=== PATIENT | male | born 1960 | race Caucasian/White ===

== ENCOUNTER 2024-07-11 18:08 | Inpatient (IN) | payer MEDICAID ==
[~2024-07-11] VITALS: Ht 167.6 cm; Wt 85.7 kg
[~2024-07-11 18:08] MED LIST: FURO40TA5 MT
[2024-07-11] MEDS: PREDNISONE 20MG TABLET PO STA (18:50)
[2024-07-11] MEDS: ALBUTEROL (0.083%) 2.5MG/3ML NEB HHN STA (19:11)
[2024-07-11] MEDS: IPRATROPIUM BROMIDE (0.02%) 0.5MG/2.5ML NEB HHN STA (19:11)
[2024-07-11 19:14] VITALS: PULSE 85; RESP 20; O2SAT 93
[2024-07-11 19:39] LABS: HEMATOCRIT. 40.8 % (42.0-52.0); HEMOGLOBIN. 13.8 g/dL (14.0-18.0); LYMPHOCYTES % 18.2 % (20.0-50.0); MEAN CORPUSCULAR HEMOGLOBIN 33.3 pg (28.0-32.0); MEAN CORPUSCULAR VOLUME 98.2 fL (80.0-94.0); MEAN PLATELET VOLUME 8.7 fl (7.4-10.4); MONOCYTES % 16.4 % (2.0-8.0); NEUTROPHILS % 65.4 % (40.0-76.0); PLATELET 224 x1000/uL (130-400); RED BLOOD CELL COUNT 4.15 mill/uL (4.7-6.1); RED CELL DISTRIBUTION WIDTH 13.7 % (11.6-14.6); WHITE BLOOD COUNT 6.1 x1000/uL (4.5-11.0)
[2024-07-11 19:42] LABS: DIFFERENTIAL COMMENT 1
[2024-07-11 19:44] LABS: CHLORIDE 112 mEq/L (98-107); SODIUM 145 mEq/L (136-145)
[2024-07-11 19:45] LABS: CALCIUM 8.9 mg/dL (8.7-10.4); CARBON DIOXIDE 29 mEq/L (21-32)
[2024-07-11 19:50] LABS: CREATININE 1.3 mg/dL (0.6-1.3); GLUCOSE 90 mg/dL (70-105); UREA NITROGEN BLOOD 22 mg/dL (9-23)
[2024-07-11] MEDS: CLOPIDOGREL 75MG TABLET PO ONE (20:36)
[2024-07-11] MEDS: ASPIRIN 325MG EC TABLET PO ONE (20:36)
[2024-07-11 20:39] LABS: TROPONIN I HIGH SENSITIVITY 144 ng/L (3.0-53)
[2024-07-12 04:00] VITALS: BP 98/66; PULSE 78; RESP 18; TEMP 36.61404; O2SAT 99
[2024-07-12 08:00] VITALS: BP 111/72; PULSE 79; RESP 18; TEMP 36.6696; O2SAT 98
[2024-07-12 08:06] VITALS: BP 109/62; PULSE 82; RESP 15; TEMP 36.418
[2024-07-12] MEDS: METOPROLOL SUCCINATE 50MG ER TABLET PO SCH (09:03)
[2024-07-12] MEDS: ASPIRIN 81MG TABLET PO SCH (09:03)
[2024-07-12] MEDS ORDERED: CLONIDINE 0.1MG TABLET PO PRN (10:15)
[2024-07-12] MEDS ORDERED: DOCUSATE SODIUM 100MG CAPSULE PO PRN (10:15)
[2024-07-12] MEDS ORDERED: ACETAMINOPHEN 325MG TABLET PO PRN (10:15)
[2024-07-12] MEDS ORDERED: ONDANSETRON HCL 4MG/2ML INJ IV PRN (10:15)
[2024-07-12] MEDS: FUROSEMIDE 40MG/4ML VIAL IVP SCH (11:36)
[2024-07-12] MEDS: PANTOPRAZOLE SODIUM 40 MG/VIAL IV SCH (11:36)
[2024-07-12] MEDS: ENOXAPARIN 40MG/0.4ML SYR SUBCUT SCH (11:37)
[2024-07-12 12:00] VITALS: BP 115/68; PULSE 81; RESP 20; TEMP 36.3918; O2SAT 99
[2024-07-12] MEDS: NITROGLYCERIN OINT 1GM/INCH UDPKT TD SCH (14:00)
[2024-07-12 16:00] VITALS: BP 108/70; PULSE 75; RESP 18; TEMP 36.55848; O2SAT 98
[2024-07-12 20:00] VITALS: BP_SYST 102; BP_SYST 105; BP_DIAS 61; PULSE 76; RESP 15; RESP 18; TEMP 36.33624; TEMP 36.3918; O2SAT 97; O2SAT 98
[2024-07-13] VITALS (7 sets, daily range): BP systolic 100–109; BP diastolic 53–67; PULSE 59–75; RESP 16–20; TEMP 36.22512–36.55848; O2SAT 95–98
[2024-07-13] MEDS: IPRATROPIUM/ALBUTEROL 0.5-3(2.5)MG/3ML NEB HHN PRN (08:00)
[2024-07-13] MEDS: FUROSEMIDE 40MG TABLET PO SCH (09:00)
[2024-07-13 13:21] LABS: BASOPHILS % 0.1 % (0.0-2.0); EOSINOPHILS % 0.5 % (0.0-5.0); HEMATOCRIT. 42.2 % (42.0-52.0); HEMOGLOBIN. 14.5 g/dL (14.0-18.0); LYMPHOCYTES % 15.9 % (20.0-50.0); MEAN CORPUSCULAR HEMOGLOBIN 33.6 pg (28.0-32.0); MEAN CORPUSCULAR HGB CONC 34.3 g/dL (31.0-37.0); MEAN CORPUSCULAR VOLUME 97.9 fL (80.0-94.0); MEAN PLATELET VOLUME 9.2 fl (7.4-10.4); MONOCYTES % 7.3 % (2.0-8.0); NEUTROPHILS % 76.2 % (40.0-76.0); PLATELET 239 x1000/uL (130-400); RED BLOOD CELL COUNT 4.31 mill/uL (4.7-6.1); RED CELL DISTRIBUTION WIDTH 13.7 % (11.6-14.6); WHITE BLOOD COUNT 7.7 x1000/uL (4.5-11.0)
[2024-07-13 13:23] LABS: CHLORIDE 100 mEq/L (98-107); POTASSIUM 4.3 mEq/L (3.5-5.1); SODIUM 138 mEq/L (136-145)
[2024-07-13 13:24] LABS: CALCIUM 9.7 mg/dL (8.7-10.4); CARBON DIOXIDE 32 mEq/L (21-32)
[2024-07-13 13:27] LABS: CREATINE KINASE MB FRACTION 4.9 ng/mL (0.5-3.6)
[2024-07-13 13:29] LABS: CREATININE 1.2 mg/dL (0.6-1.3); GLUCOSE 91 mg/dL (70-105)
[2024-07-13 13:30] LABS: D-DIMER < 0.19 mg/L FEU (<0.50); INR 0.9; LDL CHOLESTEROL 66 mg/dL (5-100); PROTHROMBIN TIME 10.3 sec (9.6-11.0); TRIGLYCERIDE 204 mg/dL (0-150); UREA NITROGEN BLOOD 21 mg/dL (9-23)
[2024-07-13 13:31] LABS: ALANINE AMINOTRANSFERASE 22 IU/L (10-49); ALBUMIN 4.3 g/dL (3.2-4.8); ASPARTATE AMINOTRANSFERASE 12 IU/L (<34); BILIRUBIN DIRECT 0.2 mg/dL (<=3.0); CHOLESTEROL 157 mg/dL (<200); CREATINE KINASE 48 IU/L (46-171); HDL CHOLESTEROL 67 mg/dL (>55); T4 FREE 1.07 ng/dL (0.89-1.76); TROPONIN I HIGH SENSITIVITY 96 ng/L (3.0-53)
[2024-07-13 13:32] LABS: BILIRUBIN TOTAL 0.9 mg/dL (0.1-1.0); PHOSPHORUS 4.3 mg/dL (2.5-4.9); PROTEIN TOTAL 6.7 g/dL (6.0-8.3)
[2024-07-13] MEDS: PANTOPRAZOLE 40MG DR TABLET PO SCH (20:27)
[2024-07-13 21:20] LABS: CLARITY URINE CLEAR (CLEAR); COLOR URINE YELLOW (YELLOW); GLUCOSE URINE 3+ (NEGATIVE); KETONES URINE NEGATIVE (NEGATIVE); LEUKOCYTE ESTERASE URINE NEGATIVE (NEGATIVE); NITRITE URINE NEGATIVE (NEGATIVE); OCCULT BLOOD URINE NEGATIVE (NEGATIVE); PROTEIN URINE NEGATIVE (NEGATIVE); SPECIFIC GRAVITY URINE 1.023 (1.005-1.030); UROBILINOGEN URINE 0.2 E.U./dL (0.2-1.0)
[2024-07-13 21:31] LABS: *AMPHETAMINES SCREEN URINE PRESUMPTIVE POSITIVE (NEGATIVE); *BARBITURATES SCREEN URINE NEGATIVE (NEGATIVE); *BENZODIAZEPINES SCREEN URINE NEGATIVE (NEGATIVE); *COCAINE SCREEN URINE NEGATIVE (NEGATIVE)
[2024-07-13 21:32] LABS: CANNABINOID URINE SCREEN PRESUMPTIVE POSITIVE (NEGATIVE); ECSTASY MDMA SCREEN URINE NEGATIVE (NEGATIVE); METHADONE URINE SCREEN NEGATIVE (NEGATIVE); OPIATES URINE SCREEN NEGATIVE (NEGATIVE); PHENCYCLIDINE URINE SCREEN NEGATIVE (NEGATIVE)
[2024-07-13 22:15] LABS: BACTERIA URINE TRACE; SQUAMOUS EPITHELIAL CELL URINE FEW /lpf (RARE/1+)
[2024-07-13 22:16] LABS: RBC URINE NONE SEEN /hpf (0-2); WBC URINE 0-2 /hpf (0-2)
[2024-07-14] VITALS (7 sets, daily range): BP systolic 100–116; BP diastolic 53–74; PULSE 61–88; RESP 18–20; TEMP 36.114–36.78072; O2SAT 95–99
[2024-07-14] MEDS: ACETAMINOPHEN 325MG TABLET PO PRN (01:22)
[2024-07-14] MEDS: LEVOTHYROXINE SODIUM 50MCG TABLET PO SCH (13:21)
[2024-07-14] MEDS ORDERED: SPIR25TA6 MT (17:00)
[2024-07-14] MEDS ORDERED: CARV3.1242 MT (17:00)
[2024-07-14] MEDS ORDERED: LEVO50TA8 PO (17:00)
[2024-07-14] MEDS ORDERED: LOSA25TA26 MT (17:00)
[2024-07-14] MEDS ORDERED: FURO40TA5 MT (17:01)
[2024-07-14] MEDS: TRAZODONE HCL 50MG TABLET PO SCH (20:16)
[2024-07-14] MEDS: ATORVASTATIN CALCIUM 40MG TABLET PO SCH (20:17)
[2024-07-15] VITALS: BP 100/69; PULSE 74; RESP 20; TEMP 36.114; O2SAT 97
[2024-07-15 04:00] VITALS: BP 117/78; PULSE 69; RESP 20; TEMP 36.78072; O2SAT 99
[2024-07-15 08:00] VITALS: BP 115/73; PULSE 72; RESP 18; TEMP 36.44736; O2SAT 95
[2024-07-15 12:00] VITALS: BP 119/79; PULSE 66; RESP 20; TEMP 36.55848; O2SAT 95
[2024-07-15 12:50] VITALS: BP 113/71; PULSE 70; TEMP 97.8; O2SAT 95
== END 2024-07-15 13:33 | disposition home or self-care (01) | DRG 812 ==
LOC: ER 18:08 → 8WST 20:30 → EDBEDREQTM 20:39 → EDBEDREQ 20:39
PROVIDERS: ADMIT Internal Medicine; ATTEND Internal Medicine
DX: T43.621A Poisoning by amphetamines, accidental (unintentional), initial encounter (principal); J96.00 Acute respiratory failure, unspecified whether with hypoxia or hypercapnia; I50.23 Acute on chronic systolic (congestive) heart failure; I42.0 Dilated cardiomyopathy; R07.89 Other chest pain; E11.9 Type 2 diabetes mellitus without complications; E78.00 Pure hypercholesterolemia, unspecified; Z59.00 Homelessness unspecified; I25.10 Atherosclerotic heart disease of native coronary artery without angina pectoris; F15.90 Other stimulant use, unspecified, uncomplicated; F17.210 Nicotine dependence, cigarettes, uncomplicated; Z91.148 Patient's other noncompliance with medication regimen for other reason; Z71.51 Drug abuse counseling and surveillance of drug abuser; Y92.89 Other specified places as the place of occurrence of the external cause
CPT/HCPCS: 36415; 71045; 80048; 80061; 80076; 80305; 81003; 82550; 82553; 83036; 83735; 83880; 84100; 84439; 84443; 84480; 84484; 85025; 85379; 93005; 93306; 94640; 99291; J1650; J1940; J2470; J7512

== ENCOUNTER 2024-09-03 02:56 | Inpatient (IN) | payer MEDICAID, OTHER ==
[~2024-09-03] VITALS: Ht 172.7 cm; Wt 84.8 kg
[~2024-09-03 02:56] MED LIST changes: +CARV3.1242 MT; +LEVO50TA8 PO; +LOSA25TA26 MT; +SPIR25TA6 MT
[2024-09-03] MEDS ORDERED: IPRATROPIUM BROMIDE (0.02%) 0.5MG/2.5ML NEB HHN STA (03:27)
[2024-09-03] MEDS ORDERED: ALBUTEROL (0.083%) 2.5MG/3ML NEB HHN STA (03:27)
[2024-09-03 04:09] LABS: BASOPHILS % 0.5 % (0.0-2.0); EOSINOPHILS % 0.1 % (0.0-5.0); HEMATOCRIT. 44.9 % (42.0-52.0); LYMPHOCYTES % 7.5 % (20.0-50.0); MEAN CORPUSCULAR HEMOGLOBIN 32.9 pg (28.0-32.0); MEAN CORPUSCULAR HGB CONC 33.4 g/dL (31.0-37.0); MEAN CORPUSCULAR VOLUME 98.5 fL (80.0-94.0); MEAN PLATELET VOLUME 9.6 fl (7.4-10.4); MONOCYTES % 8.7 % (2.0-8.0); NEUTROPHILS % 83.2 % (40.0-76.0); PLATELET 227 x1000/uL (130-400); RED BLOOD CELL COUNT 4.56 mill/uL (4.7-6.1); RED CELL DISTRIBUTION WIDTH 14.3 % (11.6-14.6)
[2024-09-03] MEDS ORDERED: ALBUTEROL (0.083%) 2.5MG/3ML NEB HHN NR (04:30)
[2024-09-03] MEDS: METHYLPREDNISOLONE SOD SUCC 125MG/2ML (ACT-O-VIAL) IV NR (04:30)
[2024-09-03] MEDS ORDERED: IPRATROPIUM BROMIDE (0.02%) 0.5MG/2.5ML NEB HHN NR (04:30)
[2024-09-03 04:46] LABS: CHLORIDE 105 mEq/L (98-107); POTASSIUM 4.9 mEq/L (3.5-5.1); SODIUM 140 mEq/L (136-145)
[2024-09-03 04:47] LABS: CALCIUM 8.8 mg/dL (8.7-10.4); CARBON DIOXIDE 24 mEq/L (21-32)
[2024-09-03 04:52] LABS: CREATININE 1.2 mg/dL (0.6-1.3); GLUCOSE 117 mg/dL (70-105); UREA NITROGEN BLOOD 17 mg/dL (9-23)
[2024-09-03 04:56] LABS: TROPONIN I HIGH SENSITIVITY 85 ng/L (3.0-53)
[2024-09-03] MEDS: MAGNESIUM 2 G PREMIX 50 ML IV ONE (05:30)
[2024-09-03] MEDS: METHYLPREDNISOLONE SOD SUCC 125MG/2ML (ACT-O-VIAL) IV STA (05:30)
[2024-09-03] MEDS ORDERED: NITROGLYCERIN 0.4MG TABLET SL SL PRN (06:15)
[2024-09-03] MEDS ORDERED: DOCUSATE SODIUM 100MG CAPSULE PO PRN (06:15)
[2024-09-03] MEDS ORDERED: IPRATROPIUM/ALBUTEROL 0.5-3(2.5)MG/3ML NEB NEB PRN (06:15)
[2024-09-03] MEDS ORDERED: ONDANSETRON HCL 4MG/2ML INJ IV PRN (06:15)
[2024-09-03] MEDS ORDERED: MAGNESIUM/ALUMINUM HYDROXIDE/SIMETHICONE 30ML UDC PO PRN (06:15)
[2024-09-03] MEDS ORDERED: ACETAMINOPHEN 325MG TABLET PO PRN (06:15)
[2024-09-03] MEDS ORDERED: KETOROLAC 15MG/ML VIAL IV PRN (06:15)
[2024-09-03] MEDS ORDERED: CLONIDINE 0.1MG TABLET PO PRN (06:15)
[2024-09-03 06:41] LABS: BG BASE EXCESS 1.3 mmol/L (-2.0-3.0); BG CARBOXYHEMOGLOBIN 0.7 % (0.5-1.5); BG DEOXYHEMOGLOBIN 4.1 % (0.0-5.0); BG HCO3 ACT 25.5 mmol/L (21.0-28.0); BG METHEMOGLOBIN 0.1 % (0.5-1.5); BG OXYGEN SATURATION 95.9 % (94.0-98.0); BG OXYHEMOGLOBIN 95.1 % (94.0-98.0); BG PH 7.433 (7.350-7.450); BG PO2 80.6 mmHg (83.0-108.0); BG SAMPLE SITE RIGHT RADIAL; BG TOTAL HEMOGLOBIN 14.3 g/dL (13.5-17.5); BG VENT MODE ROOM AIR
[2024-09-03 06:51] LABS: TROPONIN I HIGH SENSITIVITY 88 ng/L (3.0-53)
[2024-09-03] MEDS ORDERED: AZITHROMYCIN 500 MG in DEXT 5% WATER 250 ML IV SCH (08:00)
[2024-09-03] MEDS: FAMOTIDINE 20MG TABLET PO SCH (08:20)
[2024-09-03] MEDS: ACETAMINOPHEN 325MG TABLET PO PRN (08:20)
[2024-09-03] MEDS: ASPIRIN 325MG EC TABLET PO SCH (08:31)
[2024-09-03 08:33] LABS: IRON 36 ug/dL (65-175)
[2024-09-03 08:34] LABS: LDL CHOLESTEROL 64 mg/dL (5-100); TRIGLYCERIDE 102 mg/dL (0-150)
[2024-09-03 08:36] LABS: CHOLESTEROL 141 mg/dL (<200); HDL CHOLESTEROL 56 mg/dL (>55); TOTAL IRON BINDING CAPACITY 316 ug/dl (250-425)
[2024-09-03 08:37] LABS: T4 FREE 0.99 ng/dL (0.89-1.76); VITAMIN B12 SERUM 329 pg/mL (211-911)
[2024-09-03 08:38] LABS: FOLIC ACID (FOLATE) SERUM 13.62 ng/mL (>5.38); THYROID STIMULATING HORMONE 18.12 uIU/mL (0.55-4.78)
[2024-09-03 08:59] LABS: ETHANOL BLOOD < 10 mg/dL (<10)
[2024-09-03 10:00] VITALS: BP 107/64; PULSE 87; RESP 18; TEMP 36.0844; TEMP 36.78072; O2SAT 96
[2024-09-03] MEDS: ENOXAPARIN 40MG/0.4ML SYR SUBCUT SCH (10:57)
[2024-09-03] MEDS: GUAIFENESIN 600MG ER TABLET PO SCH (10:58)
[2024-09-03 12:00] VITALS: BP 116/65; PULSE 91; RESP 18; TEMP 36.61404; O2SAT 96
[2024-09-03] MEDS: METHYLPREDNISOLONE SOD SUCC 125MG/2ML (ACT-O-VIAL) IV SCH (14:59)
[2024-09-03 15:33] VITALS: PULSE 80; RESP 20
[2024-09-03] MEDS: IPRATROPIUM/ALBUTEROL 0.5-3(2.5)MG/3ML NEB HHN SCH (15:33)
[2024-09-03 16:00] VITALS: BP 114/69; PULSE 78; RESP 18; TEMP 36.22512; O2SAT 96
[2024-09-03] MEDS: AZITHROMYCIN 500MG/250ML 250 ML IV SCH (16:04)
[2024-09-03 17:06] LABS: CREATINE KINASE MB FRACTION 4.8 ng/mL (0.5-3.6)
[2024-09-03] MEDS ORDERED: SACU1TAB MT (18:24)
[2024-09-03] MEDS ORDERED: SIMV-46 PO (18:24)
[2024-09-03] MEDS ORDERED: LEVO50TA8 PO (18:24)
[2024-09-03] MEDS ORDERED: TRAZ-252 PO (18:25)
[2024-09-03 20:00] VITALS: BP 117/91; PULSE 99; RESP 20; TEMP 37.00296; O2SAT 97
[2024-09-03] MEDS: ZOLPIDEM TARTRATE 5MG TABLET PO PRN (21:49)
[2024-09-03 23:52] LABS: CREATINE KINASE MB FRACTION 4.8 ng/mL (0.5-3.6)
[2024-09-04] VITALS: BP 125/90; PULSE 88; RESP 22; TEMP 37.11408; O2SAT 97
[2024-09-04 04:00] VITALS: BP 126/87; PULSE 96; RESP 20; TEMP 36.55848; O2SAT 97
[2024-09-04 05:55] VITALS: PULSE 82; RESP 18; O2SAT 98
[2024-09-04] MEDS: GUAIFENESIN 200MG/10ML SUGAR FREE UDC PO PRN (06:20)
[2024-09-04 07:38] LABS: HEMATOCRIT. 42.5 % (42.0-52.0); HEMOGLOBIN. 13.9 g/dL (14.0-18.0); MEAN CORPUSCULAR HEMOGLOBIN 32.3 pg (28.0-32.0); MEAN CORPUSCULAR HGB CONC 32.7 g/dL (31.0-37.0); MEAN CORPUSCULAR VOLUME 98.5 fL (80.0-94.0); MEAN PLATELET VOLUME 9.6 fl (7.4-10.4); PLATELET 261 x1000/uL (130-400); RED BLOOD CELL COUNT 4.32 mill/uL (4.7-6.1); RED CELL DISTRIBUTION WIDTH 14.2 % (11.6-14.6); WHITE BLOOD COUNT 14.5 x1000/uL (4.5-11.0)
[2024-09-04 07:41] LABS: DIFFERENTIAL COMMENT 1
[2024-09-04 07:44] LABS: CARBON DIOXIDE 26 mEq/L (21-32); CHLORIDE 105 mEq/L (98-107); POTASSIUM 4.3 mEq/L (3.5-5.1); SODIUM 141 mEq/L (136-145)
[2024-09-04 07:45] LABS: CALCIUM 9.3 mg/dL (8.7-10.4)
[2024-09-04 07:49] LABS: CREATININE 1.1 mg/dL (0.6-1.3); GLUCOSE 182 mg/dL (70-105)
[2024-09-04 07:50] LABS: UREA NITROGEN BLOOD 24 mg/dL (9-23)
[2024-09-04 07:52] LABS: ALANINE AMINOTRANSFERASE 12 IU/L (10-49); ASPARTATE AMINOTRANSFERASE 9 IU/L (<34); BILIRUBIN TOTAL 0.8 mg/dL (0.1-1.0); PHOSPHORUS 3.5 mg/dL (2.5-4.9); PROTEIN TOTAL 6.2 g/dL (6.0-8.3)
[2024-09-04 09:11] VITALS: PULSE 94; RESP 20; O2SAT 94
[2024-09-04 19:33] LABS: PLATELET ESTIMATE NORMAL
[2024-09-07] MEDS ORDERED: CARV3.1242 MT (12:42)
[2024-09-07] MEDS ORDERED: ALBU18HF2 IH (12:42)
[2024-09-07] MEDS ORDERED: LEVO50TA8 PO (12:42)
[2024-09-07] MEDS ORDERED: SIMV-46 PO (12:42)
[2024-09-07] MEDS ORDERED: SACU1TAB MT (12:42)
[2024-09-07] MEDS ORDERED: SPIR25TA6 MT (12:42)
== END 2024-09-04 11:46 | disposition left against medical advice (07) | DRG 812 ==
LOC: ER 02:56 → 5WST 06:07 → EDBEDREQTM 06:09 → EDBEDREQ 06:09 → 5WST 09-04 11:42
PROVIDERS: ADMIT Internal Medicine; ATTEND Internal Medicine
DX: T43.651A Poisoning by methamphetamines accidental (unintentional), initial encounter (principal); J96.01 Acute respiratory failure with hypoxia; I21.4 Non-ST elevation (NSTEMI) myocardial infarction; I50.9 Heart failure, unspecified; J18.9 Pneumonia, unspecified organism; E11.9 Type 2 diabetes mellitus without complications; J44.0 Chronic obstructive pulmonary disease with (acute) lower respiratory infection; J44.1 Chronic obstructive pulmonary disease with (acute) exacerbation; E78.00 Pure hypercholesterolemia, unspecified; F15.10 Other stimulant abuse, uncomplicated; Z53.29 Procedure and treatment not carried out because of patient's decision for other reasons; Y92.89 Other specified places as the place of occurrence of the external cause
CPT/HCPCS: 36415; 36600; 71045; 80048; 80053; 80061; 80320; 82375; 82550; 82553; 82607; 82746; 82805; 83036; 83540; 83550; 83735; 83880; 84100; 84145; 84439; 84443; 84484; 85025; 87070; 93970; 94070; 94640; 99285; J0456; J1650; J2919; J3475; J7060; G0480